=== PATIENT | female | born 1990 | race Caucasian/White ===

== ENCOUNTER 2018-04-02 12:20 | Inpatient (IN) ==
--- NOTE | 2018-04-02 13:37 | ED ---
History of Present Illness Primary Care Physician: No Primary Care Physician History of Present Illness: 28-year-old 2 para 0 at 38+ weeks gestation who comes for follow-up of elevated blood pressure. Patient states that on Thursday she was in the office and had elevated blood pressure and was sent for blood testing and she collected a 24-hour urine at an outside laboratory. Those results were not available for 3 days according to the lab sales utility representative so she was sent here for evaluation. She denies headache, visual changes or abdominal pain. She is having occasional contractions. She reports good movement. Her swelling is decreased from earlier in the week when she was asked to go to limited activity. Surgical history: 1 prior first trimester SAB This has been cared for by Dr. Gutiérrez and has been uncomplicated up until this week. Review of Systems All other systems reviewed negative except as stated in HPI PMFSH - Medical / Surgical Hx Neg / Unobtainable Medical Problems Denied: Yes Surgical History: No Previous Surgery - Tobacco History Tobacco Use In Past 30 Days: No - Travel History Recent Travel in the [facility] Within the Last 8 Weeks: No Recent Travel Out of the Country Within the Last 8 Weeks: No Medications and Allergies Allergies Allergy/AdvReac Type Severity Reaction Status Date / Time No Known Allergies Uncoded 03/03/09 16:10 Exam Vital signs: Vital Signs 04/02/18 12:39 Temperature 98.1 F Pulse Rate 101 H Respiratory Rate 18 Blood Pressure 141/92 H Intake & Output 04/01/18 04/02/18 04/02/18 18:59 06:59 18:59 Weight 104.326 kg Narrative: GENERAL: Well-nourished, well-developed patient. SKIN: Warm and dry. HEAD: Normocephalic and atraumatic. EYES: No scleral icterus. No injection or drainage. ENT: No nasal drainage noted. Mucous membranes pink. Airway patent. NECK: Supple, trachea midline. No JVD. CARDIOVASCULAR: Regular rate and rhythm without murmurs, gallops, or rubs. RESPIRATORY: Breath sounds equal bilaterally. No accessory muscle use. ABDOMEN/GI: Abdomen soft, non-tender, bowel sounds present, no rebound, no guarding Gravid to [-] weeks size Fundal Height: [-40] GENITOURINARY: External Genitalia: intact and normal in appearance BUS glands: [-] Cervix: [-] Dilatation: [-] Effacement: [-] Station: [-] Presentation: [-] Membranes: [intact] Uterine Contractions: [-Mild irregular] FHT's: Category: [1-] Baseline: [-] Reactive: [y-] Variability: [-] Decels: [-] EXTREMITIES: No cyanosis,1+edema. BACK: Nontender without obvious deformity. No CVA tenderness. NEUROLOGICAL: Awake and alert. Motor and sensory grossly within normal limits. Five out of 5 muscle strength in all muscle groups. Normal speech. Results - Labs CBC & Chem 7: 04/02/18 13:30 04/02/18 13:30 Assessment and Plan - Plan Assessment: 38 week intrauterine with elevated blood pressure Plan: CBC, CMP are normal and urine protein creatinine ratio is elevated at 0.37 consistent with the diagnosis of preeclampsia without severe features. I discussed this with Dr. Tang who recommends admission and Cervidil cervical ripening. Discharge Plan - Discharge Disposition Patient Disposition: 30 Still Patient - Physicians Team ED Provider: Jose Enrique Cheney Primary Care Provider: Primary Care Physici,No - Discharge Instructions Print Language: Latvian
[2018-04-02 13:51] LABS: Hematocrit 36.4 % (35.0-46.0); Hemoglobin 12.4 gm/dL (11.6-15.3); Mean Corpuscular HGB Conc 34.1 % (32.0-36.0); Mean Corpuscular Hemoglobin 28.8 pg (27.0-34.0); Mean Corpuscular Volume 84.5 fL (80.0-100.0); Mean Platelet Volume 8.5 fL (7.0-11.0); Platelet Count 174 th/mm3 (150-450); Red Blood Count 4.31 mil/mm3 (4.00-5.30); Red Cell Distribution Width 15.4 % (11.6-17.2); White Blood Count 6.1 th/mm3 (4.0-11.0)
[2018-04-02 14:15] LABS: Protein/Creatinine Ratio,Urine 0.37 (0.00-0.14)
[2018-04-02 14:21] LABS: Alanine Aminotransferase 17 U/L (10-53); Albumin 2.8 g/dL (3.4-5.0); Anion Gap 13 meq/L (5-15); Aspartate Aminotransferase 13 U/L (15-37); Blood Urea Nitrogen 8 mg/dL (7-18); Calcium 9.2 mg/dL (8.5-10.1); Carbon Dioxide 22.9 meq/L (21.0-32.0); Chloride 107 meq/L (98-107); Glomerular Filtration Rate Greater Than 89 mL/min (>89); Glucose,Random 122 mg/dL (74-106); Potassium 3.5 meq/L (3.5-5.1); Sodium 143 meq/L (136-145)
[2018-04-02 14:23] LABS: Alkaline Phosphatase 193 U/L (45-117); Total Protein 6.5 g/dL (6.4-8.2)
[2018-04-02] MEDS ORDERED: fentaNYL Citrate Inj 100 MCG/2 ML Ampul IV.PUSH PRN ×2 (14:48)
[2018-04-02] MEDS ORDERED: Oxytocin 30 Units/500ml Premix 30 UNITS/500 ML BAG IV.SIG ONE (14:48)
[2018-04-02] MEDS ORDERED: Sod Chloride 0.9% Inj 1,000 ML IV.CONT PRN (14:48)
[2018-04-02] MEDS ORDERED: Naloxone Inj 0.4 MG/ML Vial IV.PUSH PRN (14:48)
[2018-04-02] MEDS ORDERED: Sodium Chlor 0.9% Inj 500 ML IV.SIG PRN (14:48)
--- NOTE | 2018-04-02 14:52 | P.HPOB ---
Patient Name: Shirin Thorpe Date of : 88 Patient Status: Emergency Emergency Provider: Jose Enrique Cheney Date: 04/02/18 13:32 Initialization Date: 04/02/18 13:32 History of Present Illness Primary Care Physician: No Primary Care Physician History of Present Illness: 28-year-old 2 para 0 at 38+ weeks gestation who comes for follow-up of elevated blood pressure. Patient states that on Thursday she was in the office and had elevated blood pressure and was sent for blood testing and she collected a 24-hour urine at an outside laboratory. Those results were not available for 3 days according to the lab lead generation representative so she was sent here for evaluation. She denies headache, visual changes or abdominal pain. She is having occasional contractions. She reports good movement. Her swelling is decreased from earlier in the week when she was asked to go to limited activity. Surgical history: 1 prior first trimester SAB This has been cared for by Dr. Gutiérrez and has been uncomplicated up until this week. Review of Systems All other systems reviewed negative except as stated in HPI PMFSH - Medical / Surgical Hx Neg / Unobtainable Medical Problems Denied: Yes Surgical History: No Previous Surgery - Tobacco History Tobacco Use In Past 30 Days: No - Travel History Recent Travel in the [place] Within the Last 8 Weeks: No Recent Travel Out of the Country Within the Last 8 Weeks: No Medications and Allergies Allergies Allergy/AdvReac Type Severity Reaction Status Date / Time No Known Allergies Uncoded 03/03/09 16:10 Exam Vital signs: Vital Signs 04/02/18 12:39 Temperature 98.1 F Pulse Rate 101 H Respiratory Rate 18 Blood Pressure 141/92 H Intake & Output 04/01/18 04/02/18 04/02/18 18:59 06:59 18:59 Weight 104.326 kg Narrative: GENERAL: Well-nourished, well-developed patient. SKIN: Warm and dry. HEAD: Normocephalic and atraumatic. EYES: No scleral icterus. No injection or drainage. ENT: No nasal drainage noted. Mucous membranes pink. Airway patent. NECK: Supple, trachea midline. No JVD. CARDIOVASCULAR: Regular rate and rhythm without murmurs, gallops, or rubs. RESPIRATORY: Breath sounds equal bilaterally. No accessory muscle use. ABDOMEN/GI: Abdomen soft, non-tender, bowel sounds present, no rebound, no guarding Gravid to [-] weeks size Fundal Height: [-40] GENITOURINARY: External Genitalia: intact and normal in appearance BUS glands: [-] Cervix: [-] Dilatation: [-] Effacement: [-] Station: [-] Presentation: [-] Membranes: [intact] Uterine Contractions: [-Mild irregular] FHT's: Category: [1-] Baseline: [-] Reactive: [y-] Variability: [-] Decels: [-] EXTREMITIES: No cyanosis,1+edema. BACK: Nontender without obvious deformity. No CVA tenderness. NEUROLOGICAL: Awake and alert. Motor and sensory grossly within normal limits. Five out of 5 muscle strength in all muscle groups. Normal speech. Results - Labs CBC & Chem 7: 04/02/18 13:30 04/02/18 13:30 Assessment and Plan - Plan Assessment: 38 week intrauterine with elevated blood pressure Plan: CBC, CMP are normal and urine protein creatinine ratio is elevated at 0.37 consistent with the diagnosis of preeclampsia without severe features. I discussed this with Dr. Tang who recommends admission and Cervidil cervical ripening. Discharge Plan - Discharge Disposition Patient Disposition: 30 Still Patient - Physicians Team ED Provider: Jose Enrique Cheney Primary Care Provider: Primary Care Physici,No - Discharge Instructions Print Language: Telugu
[2018-04-02] MEDS ORDERED: Citric Acid/Sodium Citrate Liq 30 ML UDC PO SCH (15:00)
[2018-04-02 19:02] LABS: Amphetamine Urine With Conf Neg (Neg); Benzodiazepine Urine With Conf Neg (Neg)
[2018-04-02] MEDS ORDERED: Zolpidem Tartrate 5 MG Tablet PO PRN (19:05)
[2018-04-02 19:06] LABS: Bacteria,Urine Few /hpf; Bilirubin,Urine Negative (Negative); Clarity,Urine Hazy (Clear); Color,Urine Yellow (Yellw/Straw); Glucose,Urine (UA) Negative (Negative); Leukocyte Esterase,Urine Negative (Negative); Nitrite,Urine Negative (Negative); Specific Gravity,Urine 1.005 (1.002-1.035); Squamous Epithelial Cell,Urine 2 /hpf (0-5)
[2018-04-02] MEDS ORDERED: Famotidine 20 MG Tablet PO PRN (19:06)
[2018-04-02 19:45] LABS: Baso % (Auto) 0.4 % (0.0-2.0); Eos % (Auto) 0.6 % (0.0-4.0); Hematocrit 37.2 % (35.0-46.0); Hemoglobin 12.4 gm/dL (11.6-15.3); Lymph # (Auto) 1.3 th/mm3 (1.0-4.8); Lymph % (Auto) 21.1 % (9.0-44.0); Mean Corpuscular HGB Conc 33.4 % (32.0-36.0); Mean Corpuscular Hemoglobin 28.2 pg (27.0-34.0); Mean Corpuscular Volume 84.7 fL (80.0-100.0); Mean Platelet Volume 9.2 fL (7.0-11.0); Mono # (Auto) 0.4 th/mm3 (0.0-0.9); Mono % (Auto) 6.3 % (0.0-8.0); Neut # (Auto) 4.5 th/mm3 (1.8-7.7); Neut % (Auto) 71.6 % (16.0-70.0); Platelet Count 187 th/mm3 (150-450); Red Blood Count 4.39 mil/mm3 (4.00-5.30); Red Cell Distribution Width 15.5 % (11.6-17.2); White Blood Count 6.2 th/mm3 (4.0-11.0)
[2018-04-03] MEDS ORDERED: Oxytocin 30 Units/500ml Premix 30 UNITS/500 ML BAG IV.SIG PRN (04:35)
--- NOTE | 2018-04-03 10:40 | P.OBLABOR ---
Subjective Interval history: Pt very hesitant about cervical checks; states she is quite intolerant of exam. She has had cervidil overnight and low dose pitocin this morning. Objective Vital Signs: Vital Signs - 8 hr 04/03/18 04:36 04/03/18 04:37 04/03/18 04:55 Temperature 97.7 F Pulse Rate 87 97 H Respiratory Rate 16 Blood Pressure 111/68 04/03/18 05:07 04/03/18 05:48 04/03/18 06:25 Temperature Pulse Rate 91 H 98 H 98 H Respiratory Rate Blood Pressure 112/71 130/70 04/03/18 07:44 04/03/18 08:27 04/03/18 08:28 Temperature 97.6 F Pulse Rate 89 90 Respiratory Rate 18 16 Blood Pressure 114/52 L 110/66 Objective: Pelvic Exam: Cervix: closed, thick, high Presentation: [ceph by u/s] Membranes: [intact Uterine Contractions: [irreg] FHT's: Category: [I] Baseline: [150 Reactive: [-] Variability: mod] Decels: [-] Patient Started Active Labor: No Medical Induction of Labor: Yes (pre-eclampsia) Medical Induction Start Date: 04/02/18 Assessment and Plan - Plan 28 yo with iup at 38w2d admitted for iol for pre-eclampsia 1) IOL- s/p cervidil overnight, low dose pitocin this am. SVE unchanged, cl/th/ hi. Will try po cytotec as she is intolerant of pelvic exams 2) Pre-eclampsia based on elevated bp and proteinuria. BP currently mild to normotensive. Given she is at term, delivery indicated. Aware induction can take a long time. If failed induction or arrest of dilation/descent, or nrfht, will need cd. 3) GBS negative 4) Fetus, Male "Barber" EFW at 36w5d was 7 lb 11 oz. Extrapolate wt to 8.5lb Discharge Planning: ppd 2-3
[2018-04-03] MEDS ORDERED: fentaNYL 2MCG-Bupiv 0.125% Epi 150 ML EPIDURAL ONE (17:45)
[2018-04-03] MEDS ORDERED: fentaNYL 2MCG-Bupiv 0.125% Epi 150 ML EPIDURAL PRN (18:39)
[2018-04-03] MEDS ORDERED: fentaNYL Citrate Inj 100 MCG/2 ML Ampul EPIDURAL ONE (18:39)
[2018-04-04] MEDS ORDERED: Citric Acid/Sodium Citrate Liq 30 ML UDC PO SCH (01:45)
[2018-04-04] MEDS ORDERED: Morphine Sulfate PF Inj 5 MG/10 ML Ampul ONE (01:47)
--- NOTE | 2018-04-04 01:49 | P.OBGPN ---
28 yo with iup 38+ admitted for iol for pre-e. She progressed to c/c/0 at 2200. She had a intermittent pushing efforts until 0130am with minimal descent to +1 station, molding present and turtling sign. Discussed with pt and family need for cd. Pt and family in understanding. OR team informed. PReop orders placed.
[2018-04-04] MEDS ORDERED: ceFAZolin Inj 2,000 MG in Sodium Chlor 0.9% Inj 80 ML IV.SIG SCH (02:00)
--- NOTE | 2018-04-04 03:19 | P.OBDELI ---
Procedure Note - Pre Op Diagnosis (1) Preeclampsia (2) Arrest of descent, delivered, current hospitalization - Post Op Diagnosis (1) Arrest of descent, delivered, current hospitalization (2) Preeclampsia Performed by: Zunilda Tang MD Procedure: Primary Low Transverse Section Indication for Delivery: Other (arrest of descent) Informed Consent Obtained: For anesthesia, For procedure Confirmed Correct: Patient, Procedure, Site, Time-out taken Anesthesia: Epidural Medication Prior to Procedure: As documented in eMAR Monitoring During Procedure: Blood pressure monitoring, Pulse oximetry Urinary Catheter: Inserted using sterile technique, To dependent drainage, ml urine output (75) Sterile Preparation: With 2% chlorexidine (Hibiclens) Position: Supine with wedge to right side, Supine with safety belt applied - Operative Features Skin Incision: Pfannenstiel Uterine Incision: Low transverse w/knife / blunt ext Membranes Ruptured: Previously, Appearance of fluid (clear) Presentation: Occiput posterior Status of : Viable, Cord blood, Nursery present Placenta Delivered: Intact Medications: Antibiotics, Oxytocin Estimated blood loss (mL): 500 Maternal Condition: Stable Baby Condition: Stable Procedure in Detail: Intraoperative findings: normal tubes adn ovaries. Uterus posterior aspect left uterosacral with min adhesion of bowel. left angle of incision with 3cm hematoma; stable in size during procedure. mons with a small area of folliculitis inferior to right angle of incision. - Infant : Male Male A Infant Delivery Date: 04/04/18 Infant Delivery Time: 02:22 Weight: 3.6 kg Delivery of : Uneventful score (1 min): 8 score (5 min): 9
[2018-04-04] MEDS ORDERED: Simethicone 80 MG Chew Tablet PO PRN (03:21)
[2018-04-04] MEDS ORDERED: Oxytocin 30 Units/500ml Premix 30 UNITS/500 ML BAG IV.SIG ONE (03:21)
[2018-04-04] MEDS ORDERED: miSOPROStol 200 MCG Tablet ONE (04:09)
[2018-04-04] MEDS ORDERED: Naloxone Inj 0.4 MG/ML Vial IV.PUSH PRN (05:03)
[2018-04-04] MEDS ORDERED: miSOPROStol 200 MCG Tablet PO ONE (05:15)
[2018-04-04 05:58] LABS: Baso % (Auto) 0.1 % (0.0-2.0); Hematocrit 38.1 % (35.0-46.0); Hemoglobin 12.6 gm/dL (11.6-15.3); Lymph # (Auto) 0.9 th/mm3 (1.0-4.8); Lymph % (Auto) 6.3 % (9.0-44.0); Mean Corpuscular Hemoglobin 28.2 pg (27.0-34.0); Mean Corpuscular Volume 85.5 fL (80.0-100.0); Mean Platelet Volume 8.7 fL (7.0-11.0); Mono # (Auto) 0.5 th/mm3 (0.0-0.9); Mono % (Auto) 3.8 % (0.0-8.0); Neut # (Auto) 12.3 th/mm3 (1.8-7.7); Neut % (Auto) 89.8 % (16.0-70.0); Platelet Count 193 th/mm3 (150-450); Red Blood Count 4.46 mil/mm3 (4.00-5.30); Red Cell Distribution Width 15.5 % (11.6-17.2); White Blood Count 13.7 th/mm3 (4.0-11.0)
[2018-04-04 06:20] LABS: Alanine Aminotransferase 14 U/L (10-53); Albumin 2.4 g/dL (3.4-5.0); Anion Gap 11 meq/L (5-15); Aspartate Aminotransferase 20 U/L (15-37); Blood Urea Nitrogen 12 mg/dL (7-18); Calcium 8.7 mg/dL (8.5-10.1); Carbon Dioxide 24.4 meq/L (21.0-32.0); Chloride 106 meq/L (98-107); Glomerular Filtration Rate Greater Than 89 mL/min (>89); Glucose,Random 89 mg/dL (74-106); Potassium 3.8 meq/L (3.5-5.1); Sodium 141 meq/L (136-145); Uric Acid 5.4 mg/dl (2.6-6.0)
[2018-04-04 06:22] LABS: Alkaline Phosphatase 199 U/L (45-117); Total Protein 6.2 g/dL (6.4-8.2)
[2018-04-04] MEDS ORDERED: Oxytocin 30 Units/500ml Premix 30 UNITS/500 ML BAG IV.SIG PRN (08:21)
--- NOTE | 2018-04-04 11:30 | P.PNOB ---
Subjective Post op day: 0 Interval history: Pt feels comfortable w regards to pain. Has not ambulated yet, has only taken tylenol. Gonzalez still in place. Urine bloody prior to delivery. Objective Vital Signs/I&O: Vital Signs 04/03/18 12:43 04/03/18 12:45 04/03/18 13:54 Temperature 98.6 F Pulse Rate 91 H 90 Respiratory Rate 16 Blood Pressure 136/85 132/86 04/03/18 14:49 04/03/18 15:00 04/03/18 16:00 Temperature 98.1 F Pulse Rate 91 H 88 84 Respiratory Rate 18 Blood Pressure 134/84 128/76 142/89 H 04/03/18 16:30 04/03/18 18:05 04/03/18 18:07 Temperature 98.5 F Pulse Rate 96 H 98 H Respiratory Rate 20 Blood Pressure 136/76 142/83 H 04/03/18 18:40 04/03/18 18:46 04/03/18 18:55 Temperature Pulse Rate 97 H 90 89 Respiratory Rate Blood Pressure 148/82 H 128/79 137/70 04/03/18 18:56 04/03/18 19:00 04/03/18 19:25 Temperature Pulse Rate 84 93 H Respiratory Rate 16 16 Blood Pressure 146/79 H 141/87 H 04/03/18 19:48 04/03/18 19:55 04/03/18 20:25 Temperature 98.0 F Pulse Rate 89 96 H 87 Respiratory Rate Blood Pressure 153/86 H 141/84 H 04/03/18 20:40 04/03/18 20:55 04/03/18 21:10 Temperature Pulse Rate 85 89 92 H Respiratory Rate Blood Pressure 150/99 H 129/79 04/03/18 21:40 04/03/18 23:15 04/03/18 23:30 Temperature 98.8 F Pulse Rate 110 H 101 H Respiratory Rate 16 Blood Pressure 152/93 H 04/04/18 00:17 04/04/18 00:55 04/04/18 01:00 Temperature Pulse Rate 97 H 100 H 87 Respiratory Rate Blood Pressure 132/74 145/69 H 04/04/18 01:15 04/04/18 03:20 04/04/18 03:34 Temperature 97.5 F L 98.8 F Pulse Rate 92 H 90 Respiratory Rate 20 14 17 Blood Pressure 154/76 H 145/73 H 04/04/18 03:45 04/04/18 03:46 04/04/18 04:02 Temperature Pulse Rate 85 85 Respiratory Rate 20 19 16 Blood Pressure 135/66 131/67 04/04/18 04:16 04/04/18 04:33 04/04/18 04:40 Temperature 98.3 F Pulse Rate 83 84 Respiratory Rate 18 14 Blood Pressure 131/65 128/68 04/04/18 04:46 04/04/18 05:23 04/04/18 08:50 Temperature 98.1 F 99.2 F Pulse Rate 84 72 95 H Respiratory Rate 15 18 18 Blood Pressure 127/78 150/87 H 156/89 H Intake & Output 04/03/18 04/04/18 04/04/18 18:59 06:59 18:59 Intake Total 1000 / 1000 Balance 1000 / 1000 Intake: IV 1000 / 1000 LR 1000 mL Inj 1,000 ML @ 125 1000 / 1000 mls/hr IV.CONT .Q8H [facility] Rx#: [id number] Result Diagrams: 04/04/18 05:31 04/04/18 05:31 Objective Remarks: GENERAL: Well-nourished, well-developed patient. CARDIOVASCULAR: Regular rate and rhythm without murmurs, gallops, or rubs. RESPIRATORY: Breath sounds equal bilaterally. No accessory muscle use. ABDOMEN/GI: Abdomen soft, non-tender, bowel sounds present. Incision: Clean, dry and intact. suture and dermabond. Fundus: Firm, non-tender at umbilicus. GENITOURINARY: Light to moderate bleeding. EXTREMITIES: No cyanosis or edema, non-tender, without signs of DVT. Medications and IVs: Active Medications Diphenhydramine HCl (Benadryl) 50 mg PO Q6H PRN PRN Reason: MILD TO MODERATE ITCHING Stop: 04/05/18 05:02 Diphenhydramine HCl (Benadryl Inj) 25 mg IV.PUSH Q6H PRN PRN Reason: MILD TO MODERATE ITCHING Stop: 04/05/18 05:02 Diphtheria/Pertussis/Tetanus Vacc (Boostrix Vaccine Inj) 0.5 ml IM .ONCE ONE Stop: 04/05/18 16:01 Lactated Ringer's (Lr 1000 Ml Inj) 1,000 mls @ 100 mls/hr IV.CONT .Q10H [facility] Stop: 04/05/18 04:20 Last Admin: 04/04/18 09:46 Dose: 100 mls/hr Oxytocin (Pitocin 30 Units/Ns 500 Ml Premix) 30 units in 500 mls @ 100 mls/hr IV.SIG UNSCH PRN PRN Reason: Heavy bleeding Ibuprofen (Motrin) 800 mg PO Q8H PRN PRN Reason: cramping Measles/Mumps/Rubella Vaccine Live (M-M-R Ii Vaccine Inj) 0.5 ml SQ .ONCE ONE Stop: 04/05/18 16:01 Miscellaneous Information ([facility] Nursing Information) 1 each OTHER UNSCH PRN PRN Reason: SEE LABEL COMMENTS Stop: 04/05/18 05:02 Miscellaneous Information ([facility] Nursing Information) 1 each OTHER UNSCH PRN PRN Reason: SEE LABEL COMMENTS Stop: 04/05/18 05:02 Naloxone HCl (Narcan Inj) 0.4 mg IV.PUSH UNSCH PRN PRN Reason: SEE LABEL COMMENTS Stop: 04/05/18 05:02 Oxycodone/Acetaminophen (Percocet 5/325 Mg) 1 tab PO Q4H PRN PRN Reason: PAIN SCALE 3 TO 5 Oxycodone/Acetaminophen (Percocet 5/325 Mg) 2 tab PO Q4H PRN PRN Reason: PAIN SCALE 6 TO 10 Senna/Docusate Sodium (Mikaela-Colace) 2 tab PO Q12H PRN PRN Reason: CONSTIPATION Simethicone (Mylicon Chew) 80 mg PO QID PRN PRN Reason: FLATULENCE Sodium Chloride (Ns Flush) 2 ml IV.FLUSH BID [facility] Last Admin: 04/04/18 09:58 Dose: 2 ml Sodium Chloride (Ns Flush) 2 ml IV.FLUSH PRN PRN PRN Reason: FLUSH AFTER USING IV ACCESS Zolpidem Tartrate (Ambien) 5 mg PO HS PRN PRN Reason: SLEEP Assessment and Plan - Plan 28 yo s/p Primary CD at 38w2d for arrest of descent. 1) POD 0- will d/c gonzalez today, encourage ambulation. reviewed postoperative care. Hgb stable. 2) Pre-eclampsia based on elevated bp and proteinuria. BP currently mild to normotensive. Will trend bp and see if she needs to start po antihypertensive. 3) GBS negative 4) Infant Male "Barber" desires circ, has not voided yet. Discharge Planning: pod 2-3
[2018-04-04] MEDS ORDERED: Lidocaine 2%/Epinephrine 1:200,000 PF Inj 20 ML Vial INFILTRATN ONE (12:00)
[2018-04-04] MEDS: Senna/Docusate Sodium 8.6/50 MG Tablet PO PRN (21:35)
--- NOTE | 2018-04-04 22:25 | P.OBDELI ---
Procedure Note Performed by: Zunilda Tang MD - Operative Features Procedure in Detail: OB - Immediate Post Op C-Sect Patient Name: Shirin Thorpe Date of : 88 Patient Status: Inpatient Attending Provider: Jose Enrique Gutiérrez Date: 04/04/18 03:14 Initialization Date: 04/04/18 03:14 Procedure Note - Pre Op Diagnosis (1) Preeclampsia (2) Arrest of descent, delivered, current hospitalization - Post Op Diagnosis (1) Arrest of descent, delivered, current hospitalization (2) Preeclampsia Performed by: Zunilda Tang MD Procedure: Primary Low Transverse Section Indication for Delivery: Other (arrest of descent) Informed Consent Obtained: For anesthesia, For procedure Confirmed Correct: Patient, Procedure, Site, Time-out taken Anesthesia: Epidural Medication Prior to Procedure: As documented in eMAR Monitoring During Procedure: Blood pressure monitoring, Pulse oximetry Urinary Catheter: Inserted using sterile technique, To dependent drainage, ml urine output (75) Sterile Preparation: With 2% chlorexidine (Hibiclens) Position: Supine with wedge to right side, Supine with safety belt applied - Operative Features Skin Incision: Pfannenstiel Uterine Incision: Low transverse w/knife / blunt ext Membranes Ruptured: Previously, Appearance of fluid (clear) Presentation: Occiput posterior Status of : Viable, Cord blood, Nursery present Placenta Delivered: Intact Medications: Antibiotics, Oxytocin Estimated blood loss (mL): 500 Maternal Condition: Stable Baby Condition: Stable Procedure in Detail: Intraoperative findings: normal tubes and ovaries. Uterus posterior aspect left uterosacral with min adhesion of bowel. left angle of incision with 3cm hematoma; stable in size during procedure. mons with a small area of folliculitis inferior to right angle of incision. Complications: none Counts: Correct x 3 Specimens: cord blood Dispo: to pacu Procedure in detail: After review of informed consent, pt was taken to the OR where epidural anesthesia was redosed w/o complication. She had gonzalez placed in sterile fashion. SCDs to bilateral extremities. Ancef 2 g IV given preincision. Abdomen and perineum were prepped and draped in sterile fashion. A Pfannenstiel skin incision was made with the scalpel and carried down to the underlying layer of fascia with the bovie. The fascia was incised in the midline; this incision was extended bilaterally w Corrales scissors. The superior edge, followed by the inferior edge, of the fascia was grasped with soraya clamps, elevated and from the rectus muscles with corrales scissors and bluntly. The rectus muscles were in the midline with the hemostat. Peritoneum was entered bluntly. Bladder blade was inserted. A bladder flap was created with Metzenbaum scissors. The bladder blade was then replaced. A low transverse uterine incision was made with the scalpel and extended bluntly. Clear amniotic fluid noted. Baby was OP. The head was flexed and brought to the level of the hysterotomy. Fundal pressure was used to deliver the head, the rest of the body readily followed. Viable male . Cord blood was collected. Delayed cord clamping of 45 seconds was performed. Baby was handed off to team. IV infusion of pitocin was started immediately after the delivery of the infant. The placenta was delivered w gentle cord traction and uterine massage. The uterus was exteriorized. The uterine cavity was cleared with moistened laparotomy sponges then repaired in two layers with number 1 chromic in a running locked fashion followed by an imbricating layer. The left angle of the hysterotomy developed a 3 cm hematoma with closure of the first layer; this was observed during procedure and did not expand. The posterior cul de sac was irrigated and suctioned. The uterus was noted to be hemostatic. It was returned to the abdomen. The anterior cul-de-sac was irrigated and suctioned. The peritoneum was closed with 2-0 chromic in a running fashion. The fascia was closed with number 1 vicryl in a running fashion. Subcutaneous tissue was irrigated and hemostasis obtained w the bovie. The subcutaneous tissue was brought together with 2-0 chromic in a running fashion. The skin was closed with 3-0 monocryl in a subcuticular fashion. Dermabond was used on the incision. PT was sent to pacu in stable condition. - : Male Infant Male A Delivery Date: 04/04/18 Delivery Time: 02:22 Weight: 3.6 kg Delivery of : Uneventful score (1 min): 8 score (5 min): 9
[2018-04-05 07:58] LABS: Hematocrit 36.7 % (35.0-46.0); Hemoglobin 12.2 gm/dL (11.6-15.3); Mean Corpuscular HGB Conc 33.1 % (32.0-36.0); Mean Corpuscular Hemoglobin 28.4 pg (27.0-34.0); Mean Corpuscular Volume 85.8 fL (80.0-100.0); Mean Platelet Volume 8.2 fL (7.0-11.0); Platelet Count 201 th/mm3 (150-450); Red Blood Count 4.28 mil/mm3 (4.00-5.30); Red Cell Distribution Width 15.8 % (11.6-17.2); White Blood Count 11.7 th/mm3 (4.0-11.0)
--- NOTE | 2018-04-05 08:27 | P.PNOB ---
Subjective Post op day: 1 Interval history: no complaints, ambulating, voiding Objective Vital Signs/I&O: Vital Signs 04/04/18 08:50 04/04/18 16:40 04/04/18 19:50 Temperature 99.2 F 98.4 F 98.0 F Pulse Rate 95 H 98 H 87 Respiratory Rate 18 18 18 Blood Pressure 156/89 H 134/79 120/83 04/05/18 00:40 Temperature 97.9 F Pulse Rate 107 H Respiratory Rate 18 Blood Pressure 115/68 Result Diagrams: 04/05/18 07:15 04/04/18 05:31 Objective Remarks: GENERAL: Well-nourished, well-developed patient. CARDIOVASCULAR: Regular rate and rhythm without murmurs, gallops, or rubs. RESPIRATORY: Breath sounds equal bilaterally. No accessory muscle use. ABDOMEN/GI: Abdomen soft, non-tender, bowel sounds present. Incision: Clean, dry and intact. Fundus: Firm, non-tender at umbilicus. GENITOURINARY: Light to moderate bleeding. EXTREMITIES: No cyanosis or edema, non-tender, without signs of DVT. Medications and IVs: Active Medications Diphtheria/Pertussis/Tetanus Vacc (Boostrix Vaccine Inj) 0.5 ml IM .ONCE ONE Stop: 04/05/18 16:01 Oxytocin (Pitocin 30 Units/Ns 500 Ml Premix) 30 units in 500 mls @ 100 mls/hr IV.SIG UNSCH PRN PRN Reason: Heavy bleeding Ibuprofen (Motrin) 800 mg PO Q8H PRN PRN Reason: cramping Last Admin: 04/05/18 05:10 Dose: 800 mg Measles/Mumps/Rubella Vaccine Live (M-M-R Ii Vaccine Inj) 0.5 ml SQ .ONCE ONE Stop: 04/05/18 16:01 Ondansetron HCl (Zofran Inj) 8 mg IV.PUSH Q8H PRN PRN Reason: NAUSEA Last Admin: 04/04/18 13:22 Dose: 8 mg Oxycodone/Acetaminophen (Percocet 5/325 Mg) 1 tab PO Q4H PRN PRN Reason: PAIN SCALE 3 TO 5 Oxycodone/Acetaminophen (Percocet 5/325 Mg) 2 tab PO Q4H PRN PRN Reason: PAIN SCALE 6 TO 10 Senna/Docusate Sodium (Mikaela-Colace) 2 tab PO Q12H PRN PRN Reason: CONSTIPATION Last Admin: 04/04/18 21:35 Dose: 2 tab Simethicone (Mylicon Chew) 80 mg PO QID PRN PRN Reason: FLATULENCE Sodium Chloride (Ns Flush) 2 ml IV.FLUSH BID [facility] Last Admin: 04/05/18 05:11 Dose: 2 ml Sodium Chloride (Ns Flush) 2 ml IV.FLUSH PRN PRN PRN Reason: FLUSH AFTER USING IV ACCESS Zolpidem Tartrate (Ambien) 5 mg PO HS PRN PRN Reason: SLEEP Assessment and Plan - Diagnosis (1) delivery delivered Code(s): O82 - Encounter for delivery without indication Status: Acute (2) Preeclampsia Code(s): O14.90 - Unspecified pre-eclampsia, unspecified trimester Status: Acute (3) Arrest of descent, delivered, current hospitalization Code(s): O62.1 - Secondary uterine inertia Status: Acute - Plan 28 yo s/p Primary CD at 38w2d for arrest of descent. 1) POD 1, circ done, routine post op care, discharge planning Discharge Planning: pod 2-3 - Attending Attestation pt seen by me
[2018-04-05] MEDS: Senna/Docusate Sodium 8.6/50 MG Tablet PO PRN (13:01)
[2018-04-05] MEDS ORDERED: Measles/Mumps/Rubella Vaccine Inj 0.5 ML Vial SQ ONE (16:00)
[2018-04-05] MEDS ORDERED: Diphtheria/Tetanus/Pertussis Vaccine Inj 0.5 ML Syringe IM ONE (16:00)
--- NOTE | 2018-04-06 06:17 | P.PNOB ---
Subjective Post op day: 2 Interval history: Discussed her dysphoria about having a section and the baby's weight loss. Had long discussion on her accomplishment of delivery a healthy baby and not to worry about supplementing-- it should not derail attempt at nursing. Objective Vital Signs/I&O: Vital Signs 04/05/18 08:00 04/05/18 20:00 Temperature 98.1 F 98.3 F Pulse Rate 87 64 Respiratory Rate 20 18 Blood Pressure 126/80 152/88 H Result Diagrams: 04/05/18 07:15 04/04/18 05:31 Objective Remarks: GENERAL: Well-nourished, well-developed patient. CARDIOVASCULAR: Regular rate and rhythm without murmurs, gallops, or rubs. RESPIRATORY: Breath sounds equal bilaterally. No accessory muscle use. ABDOMEN/GI: Abdomen soft, non-tender, bowel sounds present. Incision: Clean, dry and intact. Fundus: Firm, non-tender at umbilicus. GENITOURINARY: Light to moderate bleeding. EXTREMITIES: No cyanosis or edema, non-tender, without signs of DVT. Medications and IVs: Active Medications Oxytocin (Pitocin 30 Units/Ns 500 Ml Premix) 30 units in 500 mls @ 100 mls/hr IV.SIG UNSCH PRN PRN Reason: Heavy bleeding Ibuprofen (Motrin) 800 mg PO Q8H PRN PRN Reason: cramping Last Admin: 04/05/18 22:16 Dose: 800 mg Ondansetron HCl (Zofran Inj) 8 mg IV.PUSH Q8H PRN PRN Reason: NAUSEA Last Admin: 04/04/18 13:22 Dose: 8 mg Oxycodone/Acetaminophen (Percocet 5/325 Mg) 1 tab PO Q4H PRN PRN Reason: PAIN SCALE 3 TO 5 Oxycodone/Acetaminophen (Percocet 5/325 Mg) 2 tab PO Q4H PRN PRN Reason: PAIN SCALE 6 TO 10 Senna/Docusate Sodium (Mikaela-Colace) 2 tab PO Q12H PRN PRN Reason: CONSTIPATION Last Admin: 04/05/18 13:01 Dose: 2 tab Simethicone (Mylicon Chew) 80 mg PO QID PRN PRN Reason: FLATULENCE Sodium Chloride (Ns Flush) 2 ml IV.FLUSH BID MITZY Last Admin: 04/06/18 04:06 Dose: Not Given Sodium Chloride (Ns Flush) 2 ml IV.FLUSH PRN PRN PRN Reason: FLUSH AFTER USING IV ACCESS Zolpidem Tartrate (Ambien) 5 mg PO HS PRN PRN Reason: SLEEP Assessment and Plan - Diagnosis (1) delivery delivered Code(s): O82 - Encounter for delivery without indication Status: Acute (2) Preeclampsia Code(s): O14.90 - Unspecified pre-eclampsia, unspecified trimester Status: Acute (3) Arrest of descent, delivered, current hospitalization Code(s): O62.1 - Secondary uterine inertia Status: Acute - Plan 28 yo s/p Primary CD at 38w2d for arrest of descent. 1) POD 1, circ done, routine post op care, discharge planning 04/06/18 0600 POD 2 s/p section after arrest of second stage needs support and encouragement for nursing and watch for PPD may need zoloft review on POD 3 prior to discharge infant may need to stay due to bilirubin and weight loss. Discharge Planning: pod 2-3
[2018-04-06 20:46] VITALS: RESP 18
[2018-04-06] MEDS ORDERED: Ibuprofen 400 MG Tablet PO PRN (21:15)
--- NOTE | 2018-04-07 08:15 | P.PNOB ---
Subjective Post op day: 3 Interval history: doing well, pain controlled with oral meds, desires discharge; had BM and voiding normally Objective Vital Signs/I&O: Vital Signs 04/06/18 20:00 04/07/18 00:00 Temperature 98.0 F 98.7 F Pulse Rate 67 101 H Respiratory Rate 18 18 Blood Pressure 145/88 H 140/81 Result Diagrams: 04/05/18 07:15 04/04/18 05:31 Objective Remarks: GENERAL: Well-nourished, well-developed patient. CARDIOVASCULAR: Regular rate and rhythm without murmurs, gallops, or rubs. RESPIRATORY: Breath sounds equal bilaterally. No accessory muscle use. ABDOMEN/GI: Abdomen soft, non-tender, bowel sounds present. Incision: Clean, dry and intact. dermabond intact Fundus: Firm, non-tender at umbilicus. GENITOURINARY: Light to moderate bleeding. EXTREMITIES: No cyanosis or edema, non-tender, without signs of DVT. Medications and IVs: Active Medications Oxytocin (Pitocin 30 Units/Ns 500 Ml Premix) 30 units in 500 mls @ 100 mls/hr IV.SIG UNSCH PRN PRN Reason: Heavy bleeding Ibuprofen (Motrin) 800 mg PO Q8H PRN PRN Reason: cramping Last Admin: 04/06/18 21:28 Dose: 800 mg Ondansetron HCl (Zofran Inj) 8 mg IV.PUSH Q8H PRN PRN Reason: NAUSEA Last Admin: 04/04/18 13:22 Dose: 8 mg Ondansetron HCl (Zofran Odt) 4 mg SL Q4H PRN PRN Reason: NAUSEA Last Admin: 04/06/18 21:28 Dose: 4 mg Oxycodone/Acetaminophen (Percocet 5/325 Mg) 1 tab PO Q4H PRN PRN Reason: PAIN SCALE 3 TO 5 Last Admin: 04/07/18 04:06 Dose: 1 tab Oxycodone/Acetaminophen (Percocet 5/325 Mg) 2 tab PO Q4H PRN PRN Reason: PAIN SCALE 6 TO 10 Last Admin: 04/06/18 11:14 Dose: 2 tab Senna/Docusate Sodium (Mikaela-Colace) 2 tab PO Q12H PRN PRN Reason: CONSTIPATION Last Admin: 04/05/18 13:01 Dose: 2 tab Simethicone (Mylicon Chew) 80 mg PO QID PRN PRN Reason: FLATULENCE Last Admin: 04/06/18 11:13 Dose: 80 mg Sodium Chloride (Ns Flush) 2 ml IV.FLUSH BID MITZY Last Admin: 04/06/18 15:24 Dose: Not Given Sodium Chloride (Ns Flush) 2 ml IV.FLUSH PRN PRN PRN Reason: FLUSH AFTER USING IV ACCESS Zolpidem Tartrate (Ambien) 5 mg PO HS PRN PRN Reason: SLEEP Assessment and Plan - Diagnosis (1) delivery delivered Code(s): O82 - Encounter for delivery without indication Status: Acute (2) Preeclampsia Code(s): O14.90 - Unspecified pre-eclampsia, unspecified trimester Status: Acute (3) Arrest of descent, delivered, current hospitalization Code(s): O62.1 - Secondary uterine inertia Status: Acute - Plan POD 3 s/p section after arrest of second stage mood stable this AM, declines any need for mood stabilizing medication meeting all d/c criteria, d/c to home today, office f/u for wound check 1 week Discharge Planning: pod 2-3
[2018-04-07 08:38] VITALS: BP 134/76; PULSE 80; TEMP 98.4
== END 2018-04-07 13:59 | disposition home or self-care (01) ==
LOC: HOBED 12:20 → H2E 15:02 → H1EA 04-04 05:09
PROVIDERS: ADMIT Obstetrics & Gynecology; ATTEND Obstetrics & Gynecology